=== PATIENT | female | born 1970 | race African-American/Black ===

== ENCOUNTER 2021-03-16 10:12 | Emergency (ER) | payer SELFPAY ==
[~2021-03-16] VITALS: Ht 162.6 cm; Wt 75.0 kg
[2021-03-16 10:45] VITALS: BP 125/78
== END 2021-03-16 11:02 | disposition home or self-care (01) ==
LOC: ER 10:12
DX: R05 Cough (principal); R09.81 Nasal congestion; Z20.822 Contact with and (suspected) exposure to COVID-19
CPT/HCPCS: 99281